=== PATIENT | male | born 1945 | race Two or more races ===

== ENCOUNTER → 2019-11-27 | Outpatient (CLI) | payer MEDICARE, MEDICAID | END | disposition home or self-care (01) | LOC: MSC 10:45 | PROVIDERS: ATTEND Anesthesiology | DX: M54.16 Radiculopathy, lumbar region (principal); M40.299 Other kyphosis, site unspecified; G89.4 Chronic pain syndrome; M54.2 Cervicalgia; M79.606 Pain in leg, unspecified; Z96.653 Presence of artificial knee joint, bilateral; Z95.5 Presence of coronary angioplasty implant and graft; Z80.9 Family history of malignant neoplasm, unspecified; Z82.49 Family history of ischemic heart disease and other diseases of the circulatory system; Z79.891 Long term (current) use of opiate analgesic; Z79.899 Other long term (current) drug therapy ==

== ENCOUNTER 2020-03-25 11:30 | Outpatient (CLI) | payer MEDICARE, MEDICAID | END 2020-03-25 23:59 | disposition home or self-care (01) | LOC: MSC 11:30 | PROVIDERS: ATTEND Anesthesiology | DX: M54.16 Radiculopathy, lumbar region (principal); M40.299 Other kyphosis, site unspecified; G89.4 Chronic pain syndrome; M25.512 Pain in left shoulder; M25.511 Pain in right shoulder; M25.562 Pain in left knee; M25.561 Pain in right knee; M54.2 Cervicalgia; M79.672 Pain in left foot; M79.671 Pain in right foot; M06.9 Rheumatoid arthritis, unspecified; E11.9 Type 2 diabetes mellitus without complications; Z96.653 Presence of artificial knee joint, bilateral; Z95.5 Presence of coronary angioplasty implant and graft; Z82.49 Family history of ischemic heart disease and other diseases of the circulatory system; Z80.9 Family history of malignant neoplasm, unspecified; Z79.899 Other long term (current) drug therapy ==

== ENCOUNTER 2020-12-30 11:00 | Outpatient (CLI) | payer MEDICARE, MEDICAID | END 2020-12-30 23:59 | disposition home or self-care (01) | LOC: MSC 11:00 | PROVIDERS: ATTEND Anesthesiology | DX: G89.4 Chronic pain syndrome (principal); M54.16 Radiculopathy, lumbar region; M40.299 Other kyphosis, site unspecified; M06.9 Rheumatoid arthritis, unspecified; M79.606 Pain in leg, unspecified; Z79.891 Long term (current) use of opiate analgesic ==

== ENCOUNTER 2022-01-12 13:00 | Outpatient (CLI) | payer MEDICARE, MEDICAID | END 2022-01-12 23:59 | disposition home or self-care (01) | LOC: MSC 13:00 | PROVIDERS: ATTEND Anesthesiology | DX: G89.4 Chronic pain syndrome (principal); M54.16 Radiculopathy, lumbar region; M40.299 Other kyphosis, site unspecified; M79.606 Pain in leg, unspecified; M06.9 Rheumatoid arthritis, unspecified; M25.569 Pain in unspecified knee; Z96.652 Presence of left artificial knee joint; Z96.651 Presence of right artificial knee joint; M79.2 Neuralgia and neuritis, unspecified; Z95.5 Presence of coronary angioplasty implant and graft; Z82.49 Family history of ischemic heart disease and other diseases of the circulatory system; Z80.9 Family history of malignant neoplasm, unspecified; Z79.891 Long term (current) use of opiate analgesic; Z79.82 Long term (current) use of aspirin; Z79.899 Other long term (current) drug therapy ==

== ENCOUNTER → 2022-05-25 | Outpatient (CLI) | payer MEDICARE, OTHER | END | disposition home or self-care (01) | LOC: MSC 12:11 | PROVIDERS: ATTEND Anesthesiology | DX: G89.4 Chronic pain syndrome (principal); M06.9 Rheumatoid arthritis, unspecified; Z92.25 Personal history of immunosuppression therapy; M54.16 Radiculopathy, lumbar region; M40.299 Other kyphosis, site unspecified; M79.606 Pain in leg, unspecified; Z79.891 Long term (current) use of opiate analgesic; Z96.653 Presence of artificial knee joint, bilateral; Z95.5 Presence of coronary angioplasty implant and graft; Z98.42 Cataract extraction status, left eye; Z98.41 Cataract extraction status, right eye; Z80.9 Family history of malignant neoplasm, unspecified; Z82.49 Family history of ischemic heart disease and other diseases of the circulatory system; Z79.82 Long term (current) use of aspirin; Z79.899 Other long term (current) drug therapy ==